=== PATIENT | male | born 1955 | race American Indian/Alaskan Native ===

== ENCOUNTER → 2016-08-12 | Outpatient (CLI) | payer OTHER | LOC: BMCIMAGING 08:09 | PROVIDERS: ATTEND Internal Medicine | DX: K80.20 Calculus of gallbladder without cholecystitis without obstruction (principal) ==

== ENCOUNTER 2016-12-07 10:21 | Inpatient (IN) | payer OTHER ==
--- NOTE | 2016-12-07 11:00 | EDPHY ---
HPI/HX/ROS/PE/MDM Narrative: CHIEF COMPLAINT: Abdominal pain HISTORY OF PRESENT ILLNESS: This patient is a 61 y/o male arriving with his complaining of nausea and abdominal pain ongoing since evening at 8:00pm. He has history of cholelithiasis and a prior "gallstone attack" with similar symptoms last January in [facility]. He has not consulted a surgeon regarding this, but has discussed it with his primary care provider and has a referral to surgery in place. MRI of abdomen in the past showed impacted stones, and ultrasound competed in August, positive for stones. evening, he developed pain in his abdomen and back with associated nausea, vomiting, and cold sweats. His sweating and chills resolved by Friday morning, one day ago. Currently, his nausea and pain remain. His abdominal discomfort was initially epigastric and in the right upper quadrant, but is now more periumbilical. He denies fever. He has not had a bowel movement in 48 hours, but has not been able to eat either. He denies history of abdominal surgery other than hernia surgery as a . No history of pancreatitis. No fever, chest pain, shortness of breath, palpitations, diarrhea, urinary complaints, headache, lightheadedness. REVIEW OF SYSTEMS: Aside from elements discussed in the HPI, a comprehensive 10-point review of systems was reviewed and is negative. PAST MEDICAL HISTORY: Cholelithiasis. Pre-diabetic, diet controlled. Hernia repair as a . SOCIAL HISTORY: . at bedside. Nonsmoker. Moderate alcohol use. No illicit drug use. PCP Dr. Pierre. VITAL SIGNS: Reviewed by me GENERAL: Well-developed, well-nourished, resting comfortably in no respiratory distress. HEENT: Atraumatic. Eyes: No icterus, no injection. Mouth: moist mucous membranes. No erythema or lesions. Neck: supple with no adenopathy. LUNGS: Clear to auscultation bilaterally, no wheezes, rhonchi or rales. CARDIAC: Regular tachycardia, no rubs, murmurs or gallops. ABDOMEN: See skin findings. Periumbilical tenderness. Positive [place] sign. Soft , nondistended, bowel sounds normal. BACK: No CVA tenderness. EXTREMITIES: No trauma. No edema. Range of motion is normal throughout. NEURO: Alert and oriented, grossly nonfocal. SKIN: Warm and dry, anterior abdominal wall has soft blister and erythematous patches (local reaction to hot pack and castor oil) PSYCHIATRIC: Normal mentation, no agitation. Portions of this note were transcribed by a medical dermatologist. I personally performed a history, physical exam, medical decision making, and confirmed accuracy of information the transcribed note. ED Course: 61 y/o male with history of cholelithiasis presents with nausea and abdominal pain onset yesterday evening. Plan for US abdomen. Plan for labs including CBC, BMP, Troponin, liver, lipase, UA. White count 21,000. Lipase 600. 14:[address] Rodriguez radiologist. US shows cholelithiasis with gallstone impacted in the gallbladder neck. Borderline gallbladder wall thickening suggestive of chronic cholecystitis. Plan for CT abdomen. Elevated lipase, [place] sign. 14:30 Spoke with hospitalist service. Dr. Kumari accepts admission. 14:35 Reassessed patient. He has developed a temperature to 38.2. 1 g of Tylenol was administered. 15 30: Patient's course was discussed with Dr. Arash Bhagat who will follow in the hospital. CT scan is currently pending at the time of this dictation. MDM: After obtaining the patient's history and performing an examination, differential diagnosis for this patient's symptom complex was considered included but was not limited to appendicitis, cholecystitis, gastritis, pancreatitis, urinary tract infections and other causes. - Data Points Imaging Results: Imaging Impressions Abdomen Ultrasound 12/07/16 12:58 Impression: 1. Heterogeneous echotexture to the liver compatible with moderate hepatic steatosis similar to the prior study. 2. Dominant gallstone impacted in the gallbladder neck. This was not mobile that was seen previously. This along with borderline gallbladder wall thickening suggestive of chronic cholecystitis. The patient is not tender at this time. 3. Pancreas is obscured. Imaging: Discussed imaging studies w/ call center consultant Radiologist Laboratory Results: Laboratory Results 12/07/16 11:00 12/07/16 11:00 12/07/16 12/07/16 12/07/16 13:15 11:00 11:00 WBC 21.35 10^3/uL H 10^3/uL (3.80-9.50) RBC 6.21 10^6/uL 10^6/uL (4.40-6.38) Hgb 18.6 g/dL H g/dL (13.7-17.5) Hct 53.7 % H % (40.0-51.0) MCV 86.5 fL fL (81.5-99.8) MCH 30.0 pg pg (27.9-34.1) MCHC 34.6 g/dL g/dL (32.4-36.7) RDW 15.5 % H % (11.5-15.2) Plt Count 256 10^3/uL 10^3/uL (150-400) MPV 9.7 fL fL (8.7-11.7) Neut % (Auto) 81.5 % H % (39.3-74.2) Lymph % (Auto) 10.6 % L % (15.0-45.0) [place] % (Auto) 6.8 % % (4.5-13.0) Eos % (Auto) 0.0 % L % (0.6-7.6) Baso % (Auto) 0.3 % % (0.3-1.7) Nucleat RBC Rel Count 0.0 % % (0.0-0.2) Absolute Neuts (auto) 17.38 10^3/uL H 10^3/uL (1.70-6.50) Absolute Lymphs (auto) 2.27 10^3/uL 10^3/uL (1.00-3.00) Absolute Monos (auto) 1.45 10^3/uL H 10^3/uL (0.30-0.80) Absolute Eos (auto) 0.00 10^3/uL L 10^3/uL (0.03-0.40) Absolute Basos (auto) 0.07 10^3/uL 10^3/uL (0.02-0.10) Absolute Nucleated RBC 0.00 10^3/uL 10^3/uL (0-0.01) Immature Gran % 0.8 % % (0.0-1.1) Immature Gran # 0.18 10^3/uL H 10^3/uL (0.00-0.10) Sodium 139 mEq/L mEq/L (134-144) Potassium 3.6 mEq/L mEq/L (3.5-5.2) Chloride 100 mEq/L mEq/L (97-110) Carbon Dioxide 24 mEq/l mEq/l (22-31) Anion Gap 15 mEq/L mEq/L (8-16) BUN 16 mg/dL mg/dL (7-23) Creatinine 1.0 mg/dL mg/dL (0.7-1.3) Estimated GFR > 60 Glucose 141 mg/dL H mg/dL (70-100) Calcium 9.0 mg/dL mg/dL (8.5-10.4) Total Bilirubin 1.4 mg/dL mg/dL (0.1-1.4) Conjugated Bilirubin 0.4 mg/dL mg/dL (0.0-0.5) Unconjugated Bilirubin 1.0 mg/dL mg/dL (0.0-1.1) AST 44 IU/L IU/L (17-59) ALT 74 IU/L H IU/L (21-72) Alkaline Phosphatase 87 IU/L IU/L (38-126) Troponin I < 0.012 ng/mL ng/mL (0.000-0.034) Total Protein 7.4 g/dL g/dL (6.3-8.2) Albumin 4.5 g/dL g/dL (3.5-5.0) Lipase 604 IU/L H IU/L (23-300) Urine Color YELLOW Urine Appearance HAZY Urine pH 5.0 (5.0-7.5) Ur Specific [place] 1.029 (1.002-1.030) Urine Protein 2+ H (NEGATIVE) Urine Ketones 1+ H (NEGATIVE) Urine Blood 1+ H (NEGATIVE) Urine Nitrate NEGATIVE (NEGATIVE) Urine Bilirubin NEGATIVE (NEGATIVE) Urine Urobilinogen NEGATIVE EU EU (0.2-1.0) Ur Leukocyte Esterase NEGATIVE (NEGATIVE) Urine RBC NONE SEEN /hpf /hpf (0-3) Urine WBC 1-3 /hpf /hpf (0-3) Ur Epithelial Cells TRACE /lpf /lpf (NONE-1+) Urine Mucus 3+ /lpf H /lpf (NONE-1+) Urine Glucose NEGATIVE (NEGATIVE) Medications Given: Discontinued Medications Acetaminophen (Tylenol) 1,000 mg PO EDNOW ONE Stop: 12/07/16 15:06 Last Admin: 12/07/16 15:17 Dose: 1,000 mg Hydromorphone HCl (Dilaudid) 1 mg IVP EDNOW ONE Stop: 12/07/16 11:55 Last Admin: 12/07/16 11:56 Dose: 1 mg Sodium Chloride (Ns) 1,000 mls @ 0 mls/hr IV ONCE ONE; Wide Open PRN Reason: Protocol Stop: 12/07/16 13:00 Last Admin: 12/07/16 13:43 Dose: 1,000 mls Ondansetron HCl (Zofran) 4 mg IVP EDNOW ONE Stop: 12/07/16 11:56 Last Admin: 12/07/16 11:56 Dose: 4 mg General Time Seen by Provider: 12/07/16 10:52 Initial Vital Signs: Initial Vital Signs Temperature (C) 37.8 C 12/07/16 10:23 Heart Rate 108 H 12/07/16 10:23 Respiratory Rate 18 12/07/16 10:23 Blood Pressure 149/94 H 12/07/16 10:23 O2 Sat (%) 95 12/07/16 10:23 O2 Delivery Mode Nasal Cannula O2 (L/minute) 2 Allergies/Adverse Reactions: Penicillins Allergy (Verified 12/07/16 10:27) Home Medications: Medication Instructions Recorded Aspirin [Aspirin 325 mg (*)] 650 mg PO DAILY 12/07/16 Hydrocodone/Acetaminophen [[place] 1 - 2 tab PO Q4H PRN 12/07/16 5/325 (*)] Departure - Departure Disposition: [facility] Inpatient Acute Clinical Impression: Gallstones Abdominal pain Qualifiers: Abdominal location: periumbilical Qualified Code(s): R10.33 - Periumbilical pain Fever Qualifiers: Fever type: unspecified Qualified Code(s): R50.9 - Fever, unspecified Leukocytosis Qualifiers: Leukocytosis type: other Qualified Code(s): D72.828 - Other elevated white blood cell count Condition: Fair Report Scribed for: Sharon Matamoros Report Scribed by: Katya Burks Date of Report: 12/07/16 Time of Report: 11:09
[2016-12-07] MEDS ORDERED: ONDANSETRON 4 MG/2 ML VIAL ONE (11:03)
[2016-12-07 11:34] LABS: % IMMATURE GRANULYOCYTES 0.8 % (0.0-1.1); ABSOLUTE IMMATURE GRANULOCYTES 0.18 10^3/uL (0.00-0.10); ADD DIFF? NO; ADD MORPH? NO; ADD SCAN? NO; ATYPICAL LYMPHOCYTE FLAG 0 (0-99); FRAGMENT RBC FLAG 0 (0-99); HEMATOCRIT 53.7 % (40.0-51.0); HEMOGLOBIN 18.6 g/dL (13.7-17.5); LEFT SHIFT FLG 20 (0-99); LIPEMIA HEMOLYSIS FLAG 90 (0-99); MEAN CELL HEMOGLOBIN CONCENTR. 34.6 g/dL (32.4-36.7); MEAN CELL VOLUME 86.5 fL (81.5-99.8); MEAN PLATELET VOLUME 9.7 fL (8.7-11.7); PLATELET CLUMPS FLAG 20 (0-99); PLATELET COUNT 256 10^3/uL (150-400); RED BLOOD CELL COUNT 6.21 10^6/uL (4.40-6.38); RED CELL DISTRIBUTION WIDTH 15.5 % (11.5-15.2)
[2016-12-07 11:43] LABS: ALANINE AMINOTRANSFERASE 74 IU/L (21-72); ALBUMIN 4.5 g/dL (3.5-5.0); ALKALINE PHOSPHATASE 87 IU/L (38-126); ANION GAP 15 mEq/L (8-16); ASPARTATE AMINOTRANSFERASE 44 IU/L (17-59); BILIRUBIN,TOTAL 1.4 mg/dL (0.1-1.4); BILIRUBIN-CONJUGATED 0.4 mg/dL (0.0-0.5); CARBON DIOXIDE 24 mEq/l (22-31); CHLORIDE 100 mEq/L (97-110); GLOMERULAR FILTRATION RATE > 60; GLUCOSE 141 mg/dL (70-100); POTASSIUM 3.6 mEq/L (3.5-5.2); SODIUM 139 mEq/L (134-144); TOTAL PROTEIN 7.4 g/dL (6.3-8.2)
[2016-12-07] MEDS ORDERED: HYDROmorphONE/DILAUDID 1 MG/ML INJ ONE (11:49)
[2016-12-07 11:53] LABS: TROPONIN I < 0.012 ng/mL (0.000-0.034)
[2016-12-07] MEDS ORDERED: HYDROmorphONE/DILAUDID 1 MG/ML INJ IVP ONE (11:54)
[2016-12-07] MEDS ORDERED: ONDANSETRON 4 MG/2 ML VIAL IVP ONE (11:55)
--- NOTE | 2016-12-07 12:01 | CPEKG ---
Heart Rate: 99 RR Interval: 606 P-R Interval: 144 QRSD Interval: 92 QT Interval: 344 QTC Interval: 442 P Emmons: 46 QRS Emmons: 9 T Wave Emmons: 18 EKG Severity - NORMAL ECG - EKG Impression: SINUS RHYTHM Electronically Signed By: Sharon Matamoros 07-Dec-2016 15:42:40
[2016-12-07] MEDS ORDERED: NS 1,000 ML IV ONE (12:59)
[2016-12-07 13:25] LABS: COLOR YELLOW; LEUKOCYTE ESTERASE,URINE NEGATIVE (NEGATIVE); NITRITE,URINE NEGATIVE (NEGATIVE)
[2016-12-07 13:35] LABS: MUCUS 3+ /lpf (NONE-1+)
[2016-12-07 13:36] LABS: RBC,URINE NONE SEEN /hpf (0-3)
[2016-12-07] MEDS ORDERED: IOPAMIDOL (ISOVUE-300) 100 ML BTL ONE (14:39)
[2016-12-07] MEDS ORDERED: ACETAMINOPHEN 500 MG TAB ONE (15:04)
[2016-12-07] MEDS ORDERED: ACETAMINOPHEN 500 MG TAB PO ONE (15:05)
[2016-12-07] MEDS: ERTAPENEM 1 GM in NS 100 ML IV SCH (16:44)
[2016-12-07] MEDS ORDERED: oxyCODONE IR 5 MG TAB PO PRN (17:15)
[2016-12-07] MEDS ORDERED: PROMETHAZINE HCL 25 MG/ML INJ IVP PRN (17:15)
[2016-12-07] MEDS ORDERED: ONDANSETRON 4 MG/2 ML VIAL IVP PRN (17:15)
--- NOTE | 2016-12-07 18:06 | GHP ---
[f rep st] HISTORY AND PHYSICAL DATE OF ADMISSION: 12/07/2016 CHIEF COMPLAINT: Abdominal pain. HISTORY OF PRESENT ILLNESS: The patient is a 61-year-old male, who has known gallstones and passed a gallstone last January. He had been advised to consider cholecystectomy. He actually has been hav ing similar attacks off and on for the last 6 years, but completely asymptomatic in between episodes. He now presents with 2 days of a similar abdominal pain, per his usual diffuse abdominal pain. It is really more diffuse than localized in the right upper quadrant. This will often be accompanied by back pain, which he actually had less back pain in the past, profuse nausea and vomiting. No diarrh ea. He was having so much pain, he put a hot water bottle with castor oil on his abdominal wall, dev eloped some skin blistering and heat damage. PAST MEDICAL HISTORY: 1. Cholelithiasis. 2. Prediabetes, on diet control. PAST SURGICAL HISTORY: Hernia repair as a . MEDICATIONS: Please see computer record for full detailed list. ALLERGIES: Penicillin. SOCIAL HISTORY: No smoking. Drinks 2 glasses of wine per day. Lives with his . He is an attor gemma. REVIEW OF SYSTEMS: Complete review of systems obtained. Review of systems is negative regarding con stitutional, HEENT, GI, pulmonary, cardiovascular, , hematology, skin, muscular, endocrine, psych, except for positives and negatives as noted in HPI. FAMILY HISTORY: Both his parents are alive. His mom has RA. His dad had a previous stroke, but had a full recovery. PHYSICAL EXAMINATION: GENERAL: Well-developed, well-nourished male, in no acute distress. VITAL SI GNS: Temperature is 38.2, pulse 108, blood pressure 137/96, saturating 95% on room air. EYES: Norm al conjunctivae. Pupils react to light. ENT: Normal ears, nose. Hearing intact. Normal teeth. O ropharynx moist. NECK: Trachea midline. No thyromegaly. CHEST: Normal respiratory effort. LUNGS : Clear to auscultation bilaterally. CARDIOVASCULAR: Regular rhythm. No murmur. No lower extremi ty edema. ABDOMEN: Soft. Diffuse tenderness to palpation without rebound or guarding. No hepatosp lenomegaly. SKIN: Warm, dry, intact, without rash. MUSCULOSKELETAL: No cyanosis or clubbing. Str ength 5/5 upper and lower extremities. NEUROLOGIC: Cranial nerves are intact. Normal sensation to light touch. PSYCHIATRIC: Alert and oriented x3. Normal affect. Normal judgment and insight. Nor mal memory. LABORATORY DATA: White count 21.35, hematocrit 53.7, platelets 256. Sodium 139, potassium 3.6, chlo ride 100, bicarb 24, BUN 16, creatinine 1.0, glucose 141. ALT is 74, otherwise LFTs are normal. Tro ponin is negative. Lipase is 604. CT scan of the abdomen and pelvis is consistent with pancreatitis . EKG, viewed by me. My personal interpretation is normal sinus rhythm, no ST or T-wave changes. U rinalysis is negative. Abdominal ultrasound shows a gallstone impacted in the neck of the gallbladde r with gallbladder thickening. CT scan of the abdomen and pelvis consist with pancreatitis. ASSESSMENT/PLAN: 1. Gallstone pancreatitis. We will keep him n.p.o. and hydrate with intravenous fluid and treat sup portively. 2. Systemic inflammatory response syndrome. This may be all inflammation from his pancreatitis vers us sepsis from an infected gallbladder. Blood cultures have been drawn. We will start intravenous I nvanz for presumed acute cholecystitis. 3. Acute cholecystitis. He will need a laparoscopic cholecystectomy when his pancreatitis is improv ed. Dr. Bhagat has been consulted by the emergency room. 4. Prediabetes. I will check a hemoglobin A1c. 5. Obesity. BMI is 38. 6. Code status: Full. 7. Admission status: We will admit to inpatient. He is quite ill, anticipate greater than 2 midnig hts required for stabilization. 8. Deep venous thrombosis prophylaxis. Anticipate surgery in the near future, so we will use sequen tial compression devices only. /[id number]/MODL
--- NOTE | 2016-12-07 18:43 | PDMN ---
Medical Necessity Medical necessity: C/M review: Pt. meets INPT criteria per MCG M-251 Pancreatitis with common duct stone; Acute gallstone pancreatitis, gallstone impacted in the neck of the gallbladder on US, pancreatitis on CT, lipase 604, SIRS, WBC 21.35 requiring planned General Surgery consult, ongoing NPO, IV fluids, IV Ertapenem QD, IV Morphine, comorbid pre-diabetes, obesity, hx cholelithaisis; anticipates > 2 MN LOS for ongoing medical necessity for eval and TX of above.
[2016-12-07] MEDS: HYDROmorphONE/DILAUDID 1 MG/ML INJ IVP PRN ×2 (20:17→22:26)
[2016-12-07] MEDS: FAMOTIDINE 20 MG/NACL/50 ML BAG IV SCH (20:18)
[2016-12-08] MEDS: HYDROmorphONE/DILAUDID 1 MG/ML INJ IVP PRN ×3 (00:39→06:23)
[2016-12-08] MEDS: NS 1,000 ML IV SCH (00:39)
[2016-12-08 04:58] LABS: % IMMATURE GRANULYOCYTES 0.6 % (0.0-1.1); ABSOLUTE IMMATURE GRANULOCYTES 0.11 10^3/uL (0.00-0.10); ADD DIFF? NO; ADD MORPH? NO; ADD SCAN? NO; ATYPICAL LYMPHOCYTE FLAG 0 (0-99); FRAGMENT RBC FLAG 0 (0-99); HEMATOCRIT 45.6 % (40.0-51.0); HEMOGLOBIN 15.4 g/dL (13.7-17.5); LEFT SHIFT FLG 10 (0-99); LIPEMIA HEMOLYSIS FLAG 90 (0-99); MEAN CELL HEMOGLOBIN 29.7 pg (27.9-34.1); MEAN CELL HEMOGLOBIN CONCENTR. 33.8 g/dL (32.4-36.7); MEAN PLATELET VOLUME 9.4 fL (8.7-11.7); PLATELET CLUMPS FLAG 0 (0-99); PLATELET COUNT 187 10^3/uL (150-400); RED BLOOD CELL COUNT 5.18 10^6/uL (4.40-6.38); RED CELL DISTRIBUTION WIDTH 14.6 % (11.5-15.2)
[2016-12-08 05:13] LABS: ALANINE AMINOTRANSFERASE 52 IU/L (21-72); ALBUMIN 3.2 g/dL (3.5-5.0); ALKALINE PHOSPHATASE 58 IU/L (38-126); ANION GAP 8 mEq/L (8-16); ASPARTATE AMINOTRANSFERASE 31 IU/L (17-59); BILIRUBIN,TOTAL 1.1 mg/dL (0.1-1.4); BILIRUBIN-CONJUGATED 0.4 mg/dL (0.0-0.5); BILIRUBIN-UNCONJUGATED 0.7 mg/dL (0.0-1.1); CALCIUM 7.8 mg/dL (8.5-10.4); CARBON DIOXIDE 24 mEq/l (22-31); CHLORIDE 107 mEq/L (97-110); CREATININE 0.9 mg/dL (0.7-1.3); GLOMERULAR FILTRATION RATE > 60; GLUCOSE 127 mg/dL (70-100); POTASSIUM 3.8 mEq/L (3.5-5.2); SODIUM 139 mEq/L (134-144); TOTAL PROTEIN 5.5 g/dL (6.3-8.2)
[2016-12-08] MEDS ORDERED: NALOXONE HCL 0.4 MG/ML INJ IVP PRN (08:24)
[2016-12-08] MEDS: ERTAPENEM 1 GM in NS 100 ML IV SCH (08:36)
[2016-12-08] MEDS: ACETAMINOPHEN 325 MG TAB PO PRN ×2 (08:50→22:12)
[2016-12-08] MEDS: HYDROmorphONE/DILAUDID 6 MG/30 ML PCA IV PRN (08:52)
--- NOTE | 2016-12-08 09:08 | GCON ---
[f rep st] CONSULTATION DATE OF CONSULTATION: 12/08/2016 REFERRING PHYSICIAN: Sharon Matamoros MD HISTORY OF PRESENT ILLNESS: A 61-year-old male with a history of abdominal and back pain. Per this patient, this most recent episode began approximately 4 days ago. The patient noted a relatively lauren den onset of abdominal and back pain. The patient has had similar episodes in the past, the most not able which occurred approximately 1 year ago. The patient has had more minor episodes since. He has had a workup including ultrasound in August of 2016, demonstrating a large gallstone. The patient sta gabby the episode prompting it was not as severe as this current episode. The patient states his pain has improved since yesterday. The patient has had significant nausea and vomiting over the last 48 h ours, which has also improved. The patient denies fevers at home, however, he did have a temperature in the emergency department. PAST MEDICAL HISTORY: Significant for prediabetic state. ALLERGIES: Penicillin. MEDICATIONS: On admission include aspirin. PAST SURGICAL HISTORY: Significant for bilateral inguinal hernia repair as a child. SOCIAL HISTORY: The patient is a nonsmoker. He states he normally would drink 2 glasses of wine per night. However, over the last month, he has cut back and has had 1 or 0 per night for the last agustin h. PHYSICAL EXAM: VITAL SIGNS: Temperature 37.8, pulse 100, respiration rate 12. Blood pressure is 13 9/86. GENERAL: He is an overweight male, who is in no apparent distress. HEENT: His sclerae are a nicteric. There is no evidence of jugular venous distention. HEART: Regular rate and rhythm. LUNG S: Clear to auscultation bilaterally. ABDOMEN: Soft, it is moderately tender to palpation in the epiga stric and left upper quadrant areas. He has mild tenderness to palpation in the right upper quadrant . There is a negative [place] sign. The patient has no rebound or guarding. There is a blister on t he abdomen, approximately 5 cm superior to the umbilicus. There is no erythema surrounding this. EX TREMITIES: Without cyanosis, clubbing, or edema. DIAGNOSTIC DATA: Patient has a CBC with a white count of 19.5, hemoglobin 15.4, hematocrit 45.6, and platelets of 187. Chemistries demonstrate sodium 139, potassium 3.8, chloride 107, CO2 24, BUN 13, creatinine 0.9, and glucose of 127. LFTs are essentially normal. Lipase is 194, this is improved fr om lipase of 604 on 12/07/2016. DIAGNOSTIC IMAGING: Patient had an ultrasound of the right upper quadrant from 12/07/2016. This dem onstrates likely impacted gallstone, and mild inflammation of the gallbladder. CT scan from the same day demonstrates moderate inflammation of the pancreas. No free air is identified. No mass lesions are noted. ASSESSMENT AND PLAN: A 61-year-old male with likely gallstone pancreatitis. Options have been discu ssed with the patient, including the possibility of alcohol-related pancreatitis. I feel like this i s less likely at this point. Plan is to continue IV hydration and antibiotics due to the severity of his pancreatitis. If he continues to improve, we will tentatively plan for laparoscopic cholecystec carlos on 12/09/2016. Other possibilities including worsened pancreatitis and requirement for MRCP wer e discussed. If the patient continues to improve, could consider clear liquid diet later today, alth ough, he would have to resume n.p.o. status after midnight. This has been discussed in detail with t katerin patient. His questions have been answered. /[id number]/MODL
[2016-12-08] MEDS: FAMOTIDINE 20 MG/NACL/50 ML BAG IV SCH ×2 (09:15→20:36)
--- NOTE | 2016-12-08 12:57 | HOSPPROG ---
Hospitalist Progress Note Assessment/Plan: #Gallstone pancreatitis: plan for lap choley tomorrow if continues to do well. IV Invanz, NPO, IVFs #Leukocytosis: mildly improved. Abx as above. Blood cultures negative #Acute abd pain: controlled #Diet: NPO, IVFs #DVT ppx: SCDS #Disp: cont inpatient admission for IV abx and surgery Subjective: min pain today. No fevers Objective: Vital Signs Temp Pulse Resp BP Pulse Ox 37.4 C 96 12 155/90 H 94 12/08/16 12:00 12/08/16 12:00 12/08/16 12:00 12/08/16 12:00 12/08/16 12:00 Laboratory Results 12/08/16 04:50 12/08/16 04:50 12/07/16 12/08/16 12/09/16 05:59 05:59 05:59 Intake Total 1350 Output Total 970 Balance 380 - Physical Exam Constitutional: no apparent distress, obese Eyes: PERRL Ears, Nose, Mouth, Throat: moist mucous membranes, hearing normal Cardiovascular: regular rate and rhythym, no murmur, rub, or gallop Respiratory: no respiratory distress, no rales or rhonchi Gastrointestinal: other (min epigastric, RUQ TTP, quiet bowel sounds) Genitourinary: no bladder fullness Skin: warm Musculoskeletal: full muscle strength Neurologic: AAOx3, CN II-XII Intact Psychiatric: interacting appropriately ICD10 Worksheet Patient Problems: Problems Problem Status Onset Abdominal pain Acute Fever Acute Gallstones Acute Leukocytosis Acute
--- NOTE | 2016-12-08 14:00 | WOCRNPDOC ---
EDUARD Advanced Assessment Note - Skin Integrity Problem, Advanced Assess Lower Abdomen Blister Dressing Type: Open to Air Exudate Amount: None Giuliana Wound Tissue: Intact Giuliana Wound Swelling: None Wound Bed Constitution: Intact Serous Filled Blister Site Odor: None Site Measurement - Head-to-Toe Length X Width X Depth (cm): 4 x 2.5 x 0.8 protruding height Skin Integrity Problem Comment: Large fluid-filled blister with intact roof at center of abdomen, which patient reports is 2/2 having been burned at site by the use of a hot water bottle and castor oil pack, placed at home by his , in an attempt to help alleviate abdominal pain. He denies any current discomfort associated with the blistered area or chafing of clothing or linens. Discussed possibility that some of the fluid may resorb, and that some blisters self-resolve if left alone; that nursing will place a protective dressing if he wishes, and that provisional care orders will be available in the event of the blister breaking open. He verbalized his understanding. Report to JANIS Leon.
--- NOTE | 2016-12-08 17:32 | ASMTCMCOM ---
CM Note CM Note Notes: Reviewed chart re: d/c poc, pt's progress. Pt admitted w/ abd pain, cholecystitis, elevated lipase and hx of gallstones. Pt reports drinking 2 glasses of wine/day. Per MD notes, pt may have alcohol-related pancreatitis; scheduled for lap asa 12/09/16. 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 Anticipate pt will likely d/c home w/ family support and no identified needs when stable. CM will cont to follow. Date Signed: 12/08/2016 05:32 PM Electronically Signed By:Jaja Mcelroy RN
[2016-12-09 01:17] LABS: HEMOGLOBIN A1C 6.3 % (4.0-6.0)
[2016-12-09] MEDS: HYDROmorphONE/DILAUDID 6 MG/30 ML PCA IV PRN ×2 (01:28→18:23)
[2016-12-09 04:57] LABS: HEMATOCRIT 43.7 % (40.0-51.0); HEMOGLOBIN 14.7 g/dL (13.7-17.5); MEAN CELL HEMOGLOBIN 29.9 pg (27.9-34.1); MEAN CELL HEMOGLOBIN CONCENTR. 33.6 g/dL (32.4-36.7); MEAN CELL VOLUME 88.8 fL (81.5-99.8); RED BLOOD CELL COUNT 4.92 10^6/uL (4.40-6.38); RED CELL DISTRIBUTION WIDTH 14.6 % (11.5-15.2)
[2016-12-09 05:17] LABS: ALANINE AMINOTRANSFERASE 35 IU/L (21-72); ALBUMIN 2.8 g/dL (3.5-5.0); ALKALINE PHOSPHATASE 74 IU/L (38-126); ANION GAP 9 mEq/L (8-16); ASPARTATE AMINOTRANSFERASE 27 IU/L (17-59); BILIRUBIN,TOTAL 0.9 mg/dL (0.1-1.4); CALCIUM 7.9 mg/dL (8.5-10.4); CARBON DIOXIDE 24 mEq/l (22-31); CHLORIDE 105 mEq/L (97-110); CREATININE 0.8 mg/dL (0.7-1.3); GLOMERULAR FILTRATION RATE > 60; GLUCOSE 98 mg/dL (70-100); POTASSIUM 3.6 mEq/L (3.5-5.2); SODIUM 138 mEq/L (134-144); TOTAL PROTEIN 5.4 g/dL (6.3-8.2)
[2016-12-09] MEDS: NS 1,000 ML IV SCH ×2 (06:12→18:23)
[2016-12-09] MEDS: ERTAPENEM 1 GM in NS 100 ML IV SCH (08:06)
--- NOTE | 2016-12-09 09:24 | SOAPPROG ---
SOAP Progress Note Assessment/Plan: Assessment: Improved, decreased distention. Plan lap asa today. Risks/benefits d/w patient and family, questions answered. Plan: 12/09/16 09:23 Subjective: Patient feels better, pain decreased. No N/V. He feels his distention has improved. Objective: Vital Signs Temp Pulse Resp BP Pulse Ox 37.7 C 101 H 17 154/81 H 95 12/09/16 07:58 12/09/16 07:58 12/09/16 07:58 12/09/16 07:58 12/09/16 07:58 Laboratory Results 12/09/16 04:35 12/09/16 04:35 12/08/16 12/09/16 12/10/16 05:59 05:59 05:59 Intake Total 1350 1950 1304 Output Total 970 1525 180 Balance 617 689 8565 Alert, NAD RRR Abd soft, NTTP ICD10 Worksheet Patient Problems: Problems Problem Status Onset Abdominal pain Acute Fever Acute Gallstones Acute Leukocytosis Acute
[2016-12-09] MEDS ORDERED: BUPIVACAINE 0.5% 30 ML SDV ONE (09:49)
[2016-12-09] MEDS: FAMOTIDINE 20 MG/NACL/50 ML BAG IV SCH ×2 (10:14→20:07)
--- NOTE | 2016-12-09 10:15 | HOSPPROG ---
Hospitalist Progress Note Assessment/Plan: #Gallstone pancreatitis: improved pain, decreased distension. Plan for lap choley today. IV Invanz, NPO, IVFs #Leukocytosis: down to 15 Abx as above. Blood cultures negative #Acute abd pain: controlled #Diet: NPO, IVFs #DVT ppx: SCDS #Disp: cont inpatient admission for IV abx and surgery Subjective: less pain today. Belching/flatus Objective: Vital Signs Temp Pulse Resp BP Pulse Ox 37.4 C 101 H 17 131/75 H 98 12/09/16 09:53 12/09/16 09:53 12/09/16 09:53 12/09/16 09:53 12/09/16 09:53 Laboratory Results 12/09/16 04:35 12/09/16 04:35 12/08/16 12/09/16 12/10/16 05:59 05:59 05:59 Intake Total 1350 1950 1304 Output Total 970 1525 180 Balance 908 217 2067 - Physical Exam Constitutional: no apparent distress, obese Ears, Nose, Mouth, Throat: moist mucous membranes, hearing normal Cardiovascular: regular rate and rhythym, no murmur, rub, or gallop Respiratory: no respiratory distress, no rales or rhonchi Gastrointestinal: other (less abd distension today. +BS) Genitourinary: No cardona in urethra Skin: warm Musculoskeletal: full muscle strength Neurologic: AAOx3, CN II-XII Intact Psychiatric: interacting appropriately ICD10 Worksheet Patient Problems: Problems Problem Status Onset Abdominal pain Acute Fever Acute Gallstones Acute Leukocytosis Acute
[2016-12-09] MEDS ORDERED: LR 1,000 ML IV ONE (11:54)
--- NOTE | 2016-12-09 12:06 | PDANEPAE ---
ANE History of Present Illness 61 year old male presents for lap asa. ANE Past Medical History - Cardiovascular History Hx Hypertension: No Hx Arrhythmias: No Hx Chest Pain: No Hx Coronary Artery / Peripheral Vascular Disease: No Hx CHF / Valvular Disease: No Hx Palpitations: No - Pulmonary History Hx COPD: No Hx Asthma/Reactive Airway Disease: No Hx Recent Upper Respiratory Infection: No Hx Oxygen in Use at Home: No Hx Sleep Apnea: No Sleep Apnea Screening Result - Last Documented: Positive - Endocrine History Hx Diabetes: No Hypothyroid: No Hyperthyroid: No Obesity: yes, moderate - Renal History Hx Renal Disorders: No - Liver History Hx Hepatic Disorders: No - Neurological & Psychiatric Hx Hx Neurological and Psychiatric Disorders: No - Cancer History Hx Cancer: No - Chronic Pain History Chronic Pain: No ANE Review of Systems Review of systems is: negative Review of Systems: - Exercise capacity Exercise capacity: >=4 METS ANE Patient History - Allergies Allergies/Adverse Reactions: Penicillins Allergy (Verified 12/07/16 10:27) - Home Medications Home medications: home medication list seen and reviewed Home Medications: Aspirin [Aspirin 325 mg (*)] 650 mg PO DAILY 12/07/16 [Last Taken 12/05/16] Hydrocodone/Acetaminophen [[place] 5/325 (*)] 1 - 2 tab PO Q4H PRN 12/07/16 [Last Taken 12/05/16] - NPO status NPO Status: no food or drink >8 hours NPO Since - Liquids (Date): 12/09/16 NPO Since - Liquids (Time): 00:00 NPO Since - Solids (Date): 12/09/16 NPO Since - Solids (Time): 00:00 - Anes Hx Anes Hx: no prior problems - Smoking Hx Smoking Status: Never smoked - Alcohol Use Alcohol Use: Occasionally ANE Labs/Vital Signs - Labs Result Diagrams: 12/09/16 04:35 12/09/16 04:35 - Vital Signs Vital Signs: reviewed preoperatively; see RN documention for details Blood Pressure: 163/93 Heart Rate: 99 Respiratory Rate: 14 O2 Sat (%): 95 Height: 182.88 cm Weight: 128 kg ANE Physical Exam - Airway Neck exam: FROM Mallampati Score: Class 3 Mouth exam: normal dental/mouth exam - Pulmonary Pulmonary: no respiratory distress - Cardiovascular Cardiovascular: regular rate and rhythym - ASA Status ASA Status: II ANE Anesthesia Plan Anesthesia Plan: general endotracheal anesthesia Total IV Anesthesia: No
[2016-12-09] MEDS ORDERED: MIDAZOLAM 2 MG/2 ML VIAL IVP ONE (12:09)
[2016-12-09] MEDS ORDERED: MIDAZOLAM 2 MG/2 ML VIAL ONE (12:09)
[2016-12-09] MEDS ORDERED: PROPOFOL 200 MG/20 ML VIAL ONE (12:14)
[2016-12-09] MEDS ORDERED: fentaNYL 100 MCG/2 ML INJ ONE (12:14)
[2016-12-09] MEDS ORDERED: LIDOCAINE 2% 5 ML SDV ONE (12:14)
[2016-12-09] MEDS ORDERED: ROCURONIUM 50 MG/5 ML VIAL ONE (12:14)
[2016-12-09] MEDS ORDERED: IOPAMIDOL (ISOVUE-M 300) 15 ML VIAL ONE (12:25)
[2016-12-09] MEDS ORDERED: SUCCINYLCHOLINE CHLORIDE*ANESTHESIA ONLY*200 MG/10 ML SYR IVP ONE (12:25)
[2016-12-09] MEDS ORDERED: DEXAMETHASONE 4 MG/ML VIAL ONE ×2 (12:55)
[2016-12-09] MEDS ORDERED: ONDANSETRON 4 MG/2 ML VIAL ONE (12:55)
[2016-12-09] MEDS ORDERED: fentaNYL 100 MCG/2 ML INJ IVP PRN (12:57)
[2016-12-09] MEDS ORDERED: ONDANSETRON 4 MG/2 ML VIAL IVP PRN (12:57)
[2016-12-09] MEDS ORDERED: NALOXONE HCL 0.4 MG/ML INJ IVP PRN (12:57)
[2016-12-09] MEDS ORDERED: HYDROmorphONE/DILAUDID 1 MG/ML INJ IVP PRN (12:57)
[2016-12-09] MEDS ORDERED: HYDROCODONE/APAP 5/325 TAB PO PRN (12:57)
[2016-12-09] MEDS ORDERED: LR 500 ML IV PRN (12:57)
[2016-12-09] MEDS ORDERED: SUGAMMADEX SODIUM 200 MG/2 ML VIAL IVP ONE (13:17)
[2016-12-09] MEDS ORDERED: KETOROLAC 30 MG/1 ML SDV ONE (13:20)
--- NOTE | 2016-12-09 13:37 | POSTOPPROG ---
Post Op Note Date of Operation: 12/09/16 Surgeon: Sergey Bhagat Anesthesiologist: Dr. Lombardi Anesthesia: GET(General Endotracheal) Pre-op Diagnosis: Gallstone pancreatitis Post-op Diagnosis: same Procedure: Laparoscopic cholecystectomy Inf/Abcess present in the surg proc area at time of surgery?: Yes Depth: Organ Space EBL: Minimal
--- NOTE | 2016-12-09 14:28 | GOP ---
[f rep st] OPERATIVE REPORT DATE OF OPERATION: 12/09/2016 SURGEON: Arash Bhagat MD ANESTHESIA: General endotracheal anesthesia. ANESTHESIOLOGIST: Dr. Lombardi. PREOPERATIVE DIAGNOSIS: Gallstone pancreatitis. POSTOPERATIVE DIAGNOSIS: Gallstone pancreatitis. PROCEDURE PERFORMED: Laparoscopic cholecystectomy. FINDINGS: The patient has a large stone with moderate inflammation of the gallbladder. No other les ions were identified. ESTIMATED BLOOD LOSS: 20 cc. INDICATIONS: A 61-year-old male with a history of abdominal pain. CT scan demonstrating pancreatiti s. Patient's ultrasound demonstrated a large gallstone. Risks and benefits of the procedure were di scussed with the patient and his family, their questions were answered, they wished to proceed. DESCRIPTION OF PROCEDURE: The patient was in the supine position. After the induction of adequate g eneral endotracheal anesthesia, the patient was prepped and draped in the standard surgical fashion. The supraumbilical area was infiltrated with 0.5% Marcaine for local anesthesia. A 5-mm incision wa s made and the abdominal wall was elevated. A Veress needle was inserted and after noting proper pre ssures, the abdomen was insufflated with carbon dioxide. A 5-mm trocar was passed and the camera foll owed. There was no apparent damage with trocar placement. Three more ports were placed; two 5-mm po rts in the right subcostal area, and one 11-mm port in the subxiphoid area. These were all placed du ring direct vision after injecting 0.5% Marcaine for local anesthesia. The gallbladder was then grasped and elevated. Adhesions were taken down using blunt dissection and cautery. The cystic structures were carefully dissected in a similar fashion. The cystic duct and c ystic artery were clearly identified. In addition, the subhepatic space was dissected. Once this cri tical view was obtained, the cystic duct and cystic artery were clipped and transected with scissors. The gallbladder was then elevated off the liver bed using cautery and blunt dissection. It was wit hdrawn through the subxiphoid port. The abdomen was then inspected and good hemostasis was noted. The fascia at the 11-mm port site was closed using 0 Vicryl in an interrupted fashion. All trocars were removed under direct vision, and t he pneumoperitoneum was allowed to escape. The wounds were thoroughly irrigated and the skin was antonella sed with 5-0 Monocryl in a subcuticular stitch. Needle and sponge counts were correct. The wounds w ere sterilely dressed. The patient was extubated and taken to the post-anesthesia care unit in stabl e condition. COMPLICATIONS: None. DRAINS: None. ADDENDUM: The abdomen was thoroughly irrigated and aspirated. The subxiphoid port site had to be en larged slightly sharply to accommodate the size of the stone. /[id number]/MODL
--- NOTE | 2016-12-09 15:40 | POSTANESTH ---
Post Anesthetic Evaluation Cardiovascular Status: Normal, Stable, Similar to Pre-Op Cond Respiratory Status: Normal, Stable, Similar to Pre-op Cond. Level of Consciousness/Mental Status: Can Participate in Eval, Alert and Oriented Pain Control: Adequate, Prn Tx Ordered Nausea/Vomiting Control: Adequate, Prn Tx Ordered Complications Possibly Related to Anesthesia: None Noted
[2016-12-10] MEDS: NS 1,000 ML IV SCH ×2 (01:32→08:52)
[2016-12-10 05:34] LABS: HEMATOCRIT 41.1 % (40.0-51.0); MEAN CELL HEMOGLOBIN 30.2 pg (27.9-34.1); MEAN CELL HEMOGLOBIN CONCENTR. 34.1 g/dL (32.4-36.7); MEAN CELL VOLUME 88.6 fL (81.5-99.8); RED BLOOD CELL COUNT 4.64 10^6/uL (4.40-6.38); RED CELL DISTRIBUTION WIDTH 14.5 % (11.5-15.2)
[2016-12-10 06:54] LABS: ALANINE AMINOTRANSFERASE 54 IU/L (21-72); ALBUMIN 2.6 g/dL (3.5-5.0); ALKALINE PHOSPHATASE 90 IU/L (38-126); ANION GAP 5 mEq/L (8-16); ASPARTATE AMINOTRANSFERASE 47 IU/L (17-59); BILIRUBIN,TOTAL 0.7 mg/dL (0.1-1.4); CARBON DIOXIDE 26 mEq/l (22-31); CHLORIDE 106 mEq/L (97-110); CREATININE 0.7 mg/dL (0.7-1.3); GLOMERULAR FILTRATION RATE > 60; GLUCOSE 125 mg/dL (70-100); POTASSIUM 3.7 mEq/L (3.5-5.2); SODIUM 137 mEq/L (134-144)
[2016-12-10 07:58] VITALS: RESP 18
[2016-12-10] MEDS: FAMOTIDINE 20 MG/NACL/50 ML BAG IV SCH (08:20)
[2016-12-10] MEDS: ERTAPENEM 1 GM in NS 100 ML IV SCH (08:52)
--- NOTE | 2016-12-10 10:09 | PDDCSUM ---
Discharge Summary Discharge Summary: DISCHARGE DIAGNOSES: -acute gallstone pancreatitis -cholelithiasis -now status post cholecystectomy CONSULTANTS: Dr. Arash Bhagat PROCEDURES: Laparoscopic cholecystectomy HOSPITAL COURSE SUMMARY: Mr. Hobson presented with abdominal pain and was found to have acute pancreatitis with presence of gallstones. He did not drink enough alcohol be causing his pancreatitis and there are no other obvious causes found. He was treated initially for the pancreatitis conservatively and did well with good recovery. He then went to surgery with laparoscopic cholecystectomy which was successful and uncomplicated. At this point he has recovered well from that and is now taking in diet and ambulating without difficulty. There are no fevers no signs of bleeding and no nausea or vomiting. He is having bowel movements. He is stable for discharge to home. PENDING TEST RESULTS: None MEDICATION CHANGES: None FOLLOW-UP PLAN: With Dr. Arash Bhagat for postoperative check With Dr. Joann Pierre in the next month Greater than 35 minutes bedside and care coordination time today
--- NOTE | 2016-12-10 13:51 | ASMTCMCOM ---
CM Note CM Note Notes: Chart reviewed. Pat to dc home independently.No needs identified. CM available should needs arise. Date Signed: 12/10/2016 01:49 PM Electronically Signed By:Kimberli Dutton RN
--- NOTE | 2016-12-10 14:03 | SOAPPROG ---
SOAP Progress Note Assessment/Plan: Assessment: S/p lap asa, doing well. Agree with d/c. Instructions given, questions answered. RTO 2 weeks. Plan: 12/09/16 09:23 12/10/16 14:02 Subjective: Patient feels better, minimal discomfort. Booker po, no N/V. Ambulating. Objective: Vital Signs Temp Pulse Resp BP Pulse Ox 37.2 C 74 18 121/80 H 98 12/10/16 11:54 12/10/16 11:54 12/10/16 11:54 12/10/16 11:54 12/10/16 11:54 Laboratory Results 12/10/16 04:50 12/10/16 04:50 12/09/16 12/10/16 12/11/16 05:59 05:59 05:59 Intake Total 1950 5991 Output Total 1525 780 150 Balance 425 5211 -150 Alert, NAD Inc C/D/I ICD10 Worksheet Patient Problems: Problems Problem Status Onset Abdominal pain Acute Fever Acute Gallstones Acute Leukocytosis Acute
[2016-12-10 14:18] VITALS: BP 139/74; PULSE 75; TEMP 98.7; O2SAT 95
--- NOTE | 2016-12-10 16:38 | ASDISCHSUM ---
Discharge Information Plan Status:Home with No Needs Medically Cleared to Leave:12/10/2016 Discharge Date:12/10/2016 03:26 PM CM D/C Disposition:Home, Routine, Self-Care ADT D/C Disposition:Home, Routine, Self-Care Projected Discharge Date:12/10/2016 03:26 PM Transportation at D/C: Discharge Delay Reason: Follow-Up Date:12/10/2016 03:26 PM Discharge Slot: Final Diagnosis: Placement Information Patient Contact Information Contact Name:TWIN Relationship: Address:[address] [place] [address] Work Phone: City:[place] Alternate Phone: State/Zip Code:[place] [address] Email: Financial Information Financial Class:HMO and PPO Plans Primary Plan Desc:[employer] Primary Plan Number:[id number] Secondary Plan Desc: Secondary Plan Number: Assessment Information [facility] CM Progress Note CM Note CM Note Notes: Reviewed chart re: d/c poc, pt's progress. Pt admitted w/ abd pain, cholecystitis, elevated lipase and hx of gallstones. Pt reports drinking 2 glasses of wine/day. Per MD notes, pt may have alcohol-related pancreatitis; scheduled for lap asa 12/09/16. 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 Anticipate pt will likely d/c home w/ family support and no identified needs when stable. CM will cont to follow. Date Signed: 12/08/2016 05:32 PM Electronically Signed By:Jaja Mcelroy RN [facility] CM Progress Note CM Note CM Note Notes: Chart reviewed. Pat to dc home independently.No needs identified. CM available should needs arise. Date Signed: 12/10/2016 01:49 PM Electronically Signed By:Kimberli Dutton RN Intervention Information
== END 2016-12-10 15:26 | disposition home or self-care (01) | DRG 418 ==
LOC: F1N 15:34 → OBSVTOIN 17:20
PROVIDERS: ADMIT Internal Medicine; ATTEND Internal Medicine
PROC: 0FT44ZZ Resection of Gallbladder, Percutaneous Endoscopic Approach (ICD-10-PCS; principal; 2016-12-09 12:00)
DX: K85.10 Biliary acute pancreatitis without necrosis or infection (principal); K80.13 Calculus of gallbladder with acute and chronic cholecystitis with obstruction; R73.03 Prediabetes; E66.9 Obesity, unspecified; Z68.38 Body mass index [BMI] 38.0-38.9, adult
CPT/HCPCS: 96374; J0330; J1100; J1170; J1335; J1885; J2250; J2405; J2550; J2704; J3010; Q9967